=== PATIENT | male | born 1955 | race Caucasian/White ===

== ENCOUNTER 2025-07-23 09:48 | Day surgery (SDC) | payer MEDICARE, OTHER ==
[~2025-07-23 09:48] MED LIST: Midazolam 1 MG/ML 2 ML SDV ONE; Ondansetron 4 MG/2 ML SDV ONE; Propofol 200 MG/20 ML SDV ONE; Sodium Chloride 0.9% 10 ML Syringe FLUSH PRN; Sodium Chloride 0.9% 10 ML Syringe FLUSH SCH; dexmedeTOMIDine HCl 200 MCG/2 ML SDV ONE; fentaNYL 250 MCG/5 ML SDV ONE
[2025-07-23] MEDS ORDERED: propofoL 1,000 MG/100 ML 100 ML ONE (10:24)
[2025-07-23] MEDS: Lactated Ringers 1,000 ML IV SCH (10:25)
[2025-07-23] MEDS ORDERED: ePHEDrine 50 MG/ML SDV ONE (10:32)
[2025-07-23] MEDS: EPINEPHrine 1 MG/ML SDV ONE (11:40)
[2025-07-23] MEDS ORDERED: fentaNYL 100 MCG/2 ML SDV IVPUSH PRN (12:05)
[2025-07-23] MEDS ORDERED: Ondansetron 4 MG/2 ML SDV IVPUSH PRN (12:05)
== END 2025-07-23 14:20 | disposition home or self-care (01) ==
LOC: JD.SDS 09:48
PROVIDERS: ATTEND Surgery
DX: K42.9 Umbilical hernia without obstruction or gangrene (principal); I25.10 Atherosclerotic heart disease of native coronary artery without angina pectoris; E78.00 Pure hypercholesterolemia, unspecified; I12.9 Hypertensive chronic kidney disease with stage 1 through stage 4 chronic kidney disease, or unspecified chronic kidney disease; E11.22 Type 2 diabetes mellitus with diabetic chronic kidney disease; N18.30 Chronic kidney disease, stage 3 unspecified; Z79.82 Long term (current) use of aspirin; Z79.899 Other long term (current) drug therapy
CPT/HCPCS: 49591; C1781; J0169; J0665; J0690; J2003; J2250; J2405; J2704; J3010; J7120; 00790; J3490